=== PATIENT | female | born 1955 | race Caucasian/White ===

== ENCOUNTER → 2017-05-10 | Outpatient (CLI) | payer BC, OTHER ==
[~2017-05-10] MED LIST: CYCL10TA9 PO; ENAL20TA PO; FRS325T; GLUC1CAP37; HCT25T; KCL10CCR; MELO-195; METO100T6 PO; METO50TA2 PO; OMEG1CAP24 PO; OMEP-10; echinacea
== END ==
LOC: CARD 15:04
PROVIDERS: ATTEND Internal Medicine Cardiovascular Disease
DX: I10 Essential (primary) hypertension (principal); G47.33 Obstructive sleep apnea (adult) (pediatric); Z82.49 Family history of ischemic heart disease and other diseases of the circulatory system; Z83.3 Family history of diabetes mellitus

== ENCOUNTER → 2017-07-04 | Outpatient (CLI) | payer BC ==
--- NOTE | 2017-07-04 10:22 | Diagnostic Imaging Report ---
CLINICAL INDICATION: Patient with right hip and femur pain. Patient has back pain. EXAM: MRI of the lumbar spine performed without IV contrast. Sagittal T2, sagittal T1, sagittal T2 fat-sat, and axial T2. COMPARISON: X-ray of the lumbar spine dated 07/16/2009. FINDINGS: There is no acute lumbar spine fracture. There is Modic type I degenerative signal changes involving the L2 through L5 endplate regions. The visualized portions of the distal spinal cord, conus medullaris, and cauda equina have normal anatomic appearance. The conus medullaris tip is seen at the upper L2 vertebral body level. No paraspinal soft tissue abnormality is seen. There are hypertrophic vertebral body spurs seen throughout the lumbar spine and multilevel facet arthropathy. Visualized lower thoracic spine: There are mild diffuse disc bulges at the T9-T10 and T10-T11 levels. L1-L2: There is grade 1 retrolisthesis of L1 on L2. There is a diffuse disc bulge and mild loss of intervertebral disc height. There is Schmorl's nodes which are chronic involving the inferior endplate of the L1 vertebral body. There is moderate bilateral facet arthropathy. There is minimal impression upon the thecal sac. There is mild to moderate right neural foramen narrowing and no significant left neural foramen narrowing. L2-L3: There is grade 1 retrolisthesis of L2 on L3. There is a diffuse disc bulge with moderate loss of intervertebral disc height, endplate irregularity/Schmorl's nodes, moderate bilateral facet arthropathy/hypertrophy and ligament flavum buckling. There is severe central canal narrowing. There is severe right neural foramen narrowing and fnqrercs-mz-ylgxlo left neural foramen narrowing. L2-L3: There is a mild diffuse disc bulge with disc herniation component extending into the foraminal regions bilaterally with left side worse than the right. There is Schmorl's nodes involving the inferior L3 endplate. There is severe bilateral facet arthropathy/hypertrophy and ligamentum flavum buckling. There is severe central canal narrowing, mild right neural foramen narrowing, and mild to moderate left neural foramen narrowing. L4-5: There is grade 1 anterolisthesis of L4 on L5. There is a diffuse disc bulge with slight uncovering of the posterior aspect of disc. There is a ivden-oc-fzevoiwf-sized broad posterior disc extrusion/herniation which extends into the foraminal regions bilaterally. There is Schmorl's node seen involving the L4 and L5 endplates. There is severe bilateral facet arthropathy/hypertrophy and ligamentum flavum buckling. There is severe central canal narrowing, nmwk-vq-ambubprs right neural foramen narrowing and moderate left neural foramen narrowing. L5-S1: There is a small posterior disc bulge and moderate bilateral facet arthropathy. There is no significant central spinal canal or neural foramen narrowing. IMPRESSION: 1: There is severe multilevel lumbar spine degenerative disc disease which is worse at the L2-L3, L3-L4, and L4-L5 levels. 2: There is severe central canal narrowing at the L2-L3, L3-L4, and L4-5 levels due to diffuse disc bulges, disc herniations, facet arthropathy/hypertrophy, and ligamentum flavum buckling. There is also moderate to severe multilevel neural foramen narrowing. 3: There is stairstep grade 1 retrolisthesis of L1 on L2 and L2 on L3, and grade 1 anterolisthesis of L4 on L5. Dictated by: Dictated on workstation # [id number]
== END ==
LOC: RAD 08:11
PROVIDERS: ATTEND Orthopaedic Surgery
DX: M51.36 Other intervertebral disc degeneration, lumbar region (principal); M48.06 Spinal stenosis, lumbar region; M51.26 Other intervertebral disc displacement, lumbar region; M43.16 Spondylolisthesis, lumbar region
CPT/HCPCS: 72148

== ENCOUNTER → 2018-12-16 | Outpatient (CLI) | payer BC ==
[~2018-12-16] MED LIST changes: +METO50TA15 PO; -METO50TA2 PO
--- NOTE | 2018-12-16 19:00 | Diagnostic Imaging Report ---
EXAMINATION: Digital mammogram bilateral screening with 3D tomosynthesis. The current study was also evaluated with a Computer Aided Detection (CAD) system. INDICATION: Screening. This study was compared to the prior exam of 02/11/2015 and 09/24/2012. At this time, there are no current complaints. FINDINGS: There are scattered fibroglandular densities in both breasts which could obscure a lesion. When compared to the prior study, there has been no significant change. There is no primary or secondary sign of malignancy noted. The 3D tomographic views also fail to show any sign of malignancy. Benign-appearing nodular densities in the right breast seen previously are again evident and no different. IMPRESSION: There is no evidence of malignancy. ACR BI-RADS Category 1: Negative. Result letter will be mailed to the patient. Note: At least 10% of breast cancer is not imaged by mammography. Dictated by: Dictated on workstation # [id number]
== END ==
LOC: RAD 10:56
PROVIDERS: ATTEND Family Medicine
DX: Z12.31 Encounter for screening mammogram for malignant neoplasm of breast (principal)
CPT/HCPCS: 77067

== ENCOUNTER → 2018-12-31 | Outpatient (CLI) | payer BC ==
[~2018-12-31] MED LIST changes: +CATHETER FLUSH 10 ML SYR IV PRN
[2018-12-31 13:17] VITALS: BP 134/89
--- NOTE | 2018-12-31 15:20 | STRESS TEST ---
DATE OF SERVICE: 12/31/2018 EXERCISE MYOVIEW STRESS TEST REFERRING PHYSICIAN: Linda Cameron MD. Baseline heart rate is 48, baseline blood pressure 138/90. Baseline EKG is sinus rhythm with no ischemic changes. In summary, the patient was injected with 10.0 mCi of technetium-99 Myoview and then the patient started exercising with baseline heart rate, blood pressure and EKG mentioned above. She was able to exercise for a total of 6 minutes on standard Brett protocol. With peak exercise level, EKG was showing [address] depression in II, III, aVF, V4 and V5. Blood pressure at peak was 171/89. During recovery, heart rate and blood pressure returned to baseline. EKG returned to baseline. The resting and stress images were reviewed and compared in the short axis, horizontal long axis, and vertical long axis views. Review of the images showed good radiotracer uptake with no ischemia or infarction. SSS is 1, SDS 1, TID value 1.0. On the gated images, the left ventricle appeared to be in normal size with normal contractility. Calculated ejection fraction is 68%. CONCLUSION: 1. Fair exercise tolerance, a total of 6 minutes on standard Brett protocol, total of 7.3 METs achieving 92% of maximum expected heart rate. 2. Appropriate heart rate and blood pressure response to exercise returned to baseline during recovery. 3. Minimal nondiagnostic EKG changes with exercise returned to baseline during recovery. 4. No ischemia or infarction on SPECT images. 5. Normal left ventricular size with normal contractility. Calculated ejection fraction is 68%. Job ID: [id number] DocumentID: [id number] Dictated Date: 12/31/2018 14:55:54 Timers Inspector Date: 12/31/2018 15:19:34 Dictated By: FEDERICO MENDOZA MD
== END ==
LOC: CARD 11:44
PROVIDERS: ATTEND Internal Medicine Cardiovascular Disease
DX: R07.9 Chest pain, unspecified (principal); I10 Essential (primary) hypertension; R09.89 Other specified symptoms and signs involving the circulatory and respiratory systems; K21.9 Gastro-esophageal reflux disease without esophagitis; G47.33 Obstructive sleep apnea (adult) (pediatric)
CPT/HCPCS: 78452; 93017

== ENCOUNTER → 2019-01-09 | Outpatient (CLI) | payer BC ==
[~2019-01-09] MED LIST changes: -CATHETER FLUSH 10 ML SYR IV PRN
== END ==
LOC: CARD 09:00
PROVIDERS: ATTEND Internal Medicine Cardiovascular Disease
DX: R07.9 Chest pain, unspecified (principal); R09.89 Other specified symptoms and signs involving the circulatory and respiratory systems; K21.9 Gastro-esophageal reflux disease without esophagitis; I10 Essential (primary) hypertension; G47.33 Obstructive sleep apnea (adult) (pediatric)
CPT/HCPCS: 93306

== ENCOUNTER → 2021-07-18 | Outpatient (CLI) | payer BC, MEDICARE ==
--- NOTE | 2021-07-18 16:44 | Diagnostic Imaging Report ---
INDICATION: Postmenopausal screening for osteoporosis COMPARISON: None FINDINGS: AP Spine L1-L4: [BMD (g/cm2): 1.161] [T-Score: -0.3] [Z-Score: 0.2] [BMD Previous: na] [BMD % Change: na] LT Hip Neck: [BMD (g/cm2): na] [T-Score: na] [Z-Score: na] LT Hip Total: [BMD (g/cm2):na] [T-Score:na] [Z-Score: na] [BMD Previous: na] [BMD % Change: na] RT Hip Neck: [BMD (g/cm2):na] [T-Score:na] [Z-Score:na] RT Hip Total: [BMD (g/cm2):na] [T-score:na] [Z-Score:na] [BMD Previous:na] [BMD % Change:na] *Indicates significant change from prior examination based on 95% confidence level. World Health Organization criteria for BMD interpretation classify patients as Normal (T-score at or above -1.0), Osteopenic (T-score between -1.0 and -2.5) or Osteoporotic (T-score at or below -2.5). LIMITATIONS AND MODIFICATION: None. FRACTURE RISK (FRAX SCORE): The ten year probability of (%): Major Osteoporotic Fracture: [na] Hip Fracture: [na] IMPRESSION: 1. Osteopenia (Low bone mass). 2. Baseline examination. 3. See below National Osteoporosis Foundation guidelines on when to potentially initiate pharmacologic therapy. Based on the National Osteoporosis Foundation Guidelines, pharmacologic treatment should be initiated in any of the following, unless clinical conditions suggest otherwise: * Any patient with prior fragility fracture of the hip or vertebrae. A spine fracture indicates 5X risk for subsequent spine fracture and 2X risk for subsequent hip fracture. * Osteoporosis (T-score <-2.5). * Postmenopausal women and men age 50 and older with low bone mass/osteopenia (T-score between -1.0 and -2.5) by DXA and 10-year major osteoporotic fracture greater than 20% or a 10-year probability of hip fracture greater than 3%. These fracture risks are supplied above in the FRAX score, if applicable. * Clinician judgement and/or patient preferences may indicate treatment for people with 10-year fracture probabilities above or below these levels. Dictated by: Dictated on workstation # [id number]
--- NOTE | 2021-07-18 19:22 | Diagnostic Imaging Report ---
INDICATION: Routine screening. COMPARISON is made with prior mammograms of 12/16/2018 and 02/11/2015. 2-D and 3-D bilateral screening mammography was performed with CAD. Scattered fibroglandular densities are identified bilaterally. The parenchymal pattern is stable. The circumscribed mass in the inner right breast is stable. No new mass or malignant-appearing microcalcifications are seen. Tiny nodule in the outer left breast appears stable. Axillae are unremarkable. IMPRESSION: BI-RADS Category 2 No mammographic features suspicious for malignancy are identified. Dictated by: Dictated on workstation # [id number]
== END ==
LOC: RAD 12:45
PROVIDERS: ATTEND Family Medicine
DX: Z13.820 Encounter for screening for osteoporosis (principal); Z12.31 Encounter for screening mammogram for malignant neoplasm of breast; M85.80 Other specified disorders of bone density and structure, unspecified site; Z78.0 Asymptomatic menopausal state
CPT/HCPCS: 77063; 77067; 77080